=== PATIENT | female | born 1985 | race Caucasian/White ===

== ENCOUNTER 2016-06-12 04:33 | Emergency (ER) | payer BC ==
[~2016-06-12] VITALS: Ht 170.2 cm; Wt 71.0 kg
[2016-06-12 04:36] VITALS: BP 139/86; PULSE 85; RESP 16; TEMP 97.4; O2SAT 96
[2016-06-12] MEDS ORDERED: BUSP5TAB PO (04:46)
[2016-06-12] MEDS ORDERED: MONT10TA2 PO (04:46)
[2016-06-12] MEDS ORDERED: PROT40TA PO (04:47)
[2016-06-12] MEDS ORDERED: ALBUAER3 INH (04:47)
[2016-06-12] MEDS ORDERED: ONDANSETRON HCL 4 MG/2 ML VIAL ONE (04:53)
[2016-06-12] MEDS ORDERED: ONDANSETRON HCL 4 MG/2 ML VIAL IV ONE (05:00)
[2016-06-12] MEDS ORDERED: SODIUM CHLOR 0.9% 1000 ML INJ 1,000 ML IV ONE ×2 (05:00)
[2016-06-12] MEDS ORDERED: ZOFR4TAB3 SL (05:06)
--- NOTE | 2016-06-12 05:07 | PD ---
HPI Chief Complaint: GI Complaint Time Seen by Provider: 04:48 Travel History International Travel<30 days: No Contact w/Intl Traveler<30days: No Traveled to known affect area: No History of Present Illness HPI 31 year-old woman presents emergent [place] of nausea vomiting after drinking a moderate amount of alcohol today. She reports she several months and hasn't really drank heavily since then. They're flying back to [place] today. She states she's been vomiting all night. No abdominal pain. She'll states she has a "bad gallbladder" and into the taken out. No other complaints. History Past Medical History Narrative Medical Gastritis Tetanus Vaccination: < 5 Years Influenza Vaccination: No LMP: NOW : 1 Para: 1 Social History Alcohol Use: Yes (occasional ) Tobacco Use: No Allergies-Medications (Allergen,Severity, Reaction): Coded Allergies: Ibuprofen (Verified Allergy, Severe, gi bleed, 06/12/16) Zoloft (Verified Allergy, Severe, throat swells shut, 06/12/16) Reported Meds & Prescriptions Reported Meds & Active Scripts Active Reported Proair Hfa 8.5 GM Inh (Albuterol Sulfate) 90 Mcg/Act Aer 2 Puff INH Q4-6H PRN 108 mcg/actuation Protonix (Pantoprazole Sodium) 40 Mg Tab 40 Mg PO DAILY Buspirone (Buspirone HCl) 5 Mg Tab 5 Mg PO BID Singulair (Montelukast Sodium) 10 Mg Tab 10 Mg PO HS Review of Systems Except as stated in HPI: all other systems reviewed are Neg Physical Exam Narrative GENERAL: Well-appearing 31-year-old with acute distress. SKIN: Warm and dry. NECK: Trachea midline. No JVD. CARDIOVASCULAR: Regular rate and rhythm. No murmur appreciated. RESPIRATORY: No accessory muscle use. Clear to auscultation. Breath sounds equal bilaterally. GASTROINTESTINAL: Abdomen soft, non-tender, nondistended. Hepatic and splenic margins not palpable. MUSCULOSKELETAL: No obvious deformities. No edema. NEUROLOGICAL: Awake and alert. No obvious cranial nerve deficits. Motor grossly within normal limits. Normal speech. PSYCHIATRIC: Appropriate mood and affect; insight and judgment normal. Data Data Last Documented VS Vital Signs Date Time Temp Pulse Resp B/P Pulse Ox O2 Delivery O2 Flow Rate FiO2 06/12/16 04:36 97.4 85 16 139/86 96 Room Air Orders Ondansetron Inj (Zofran Inj) (06/12/16 05:00) Sodium Chlor 0.9% 1000 Ml Inj (Ns 1000 M (06/12/16 05:00) Sodium Chlor 0.9% 1000 Ml Inj (Ns 1000 M (06/12/16 05:00) Ondansetron Inj (Zofran Inj) (06/12/16 04:53) MDM Medical Decision Making Medical Screen Exam Complete: Yes Emergency Medical Condition: Yes Differential Diagnosis Veisalgia, alcohol poisoning, dehydration, other Narrative Course Medical decision making 31 year-old woman with vomiting after drinking alcohol. She looks fine. Benign abdominal exam. We will give her 2 L fluid bolus and some Zofran. Outpatient follow-up. Diagnosis Primary Impression: Nausea & vomiting Qualified Code: R11.2 - Non-intractable vomiting with nausea, unspecified vomiting type Additional Instructions: Use Zofran if needed for nausea or vomiting. Follow-up with her primary doctor in 2-4 days. Return to the emergency department for any new or worsening symptoms. Med/Other Pt SpecificInfo: Prescription(s) given Scripts Ondansetron Odt (Zofran Odt)4 Mg Tab4 Mg SL Q8HR PRN (Nausea/Vomiting) #15 TAB May substitute non-ODT form. Prov:Jc Rios MD 06/12/16 Disposition: 01 DISCHARGE HOME Condition: Stable Jc Rios MD Jun 12, 2016 05:06
== END 2016-06-12 06:03 | disposition home or self-care (01) ==
LOC: NEPC 04:33
DX: R11.2 Nausea with vomiting, unspecified (principal); F10.10 Alcohol abuse, uncomplicated
CPT/HCPCS: 96361; 96374; 99283; J2405; J7030